=== PATIENT | female | born 1995 | race Caucasian/White ===

== ENCOUNTER 2020-07-28 12:31 | Emergency (ER) | payer OTHER ==
[2020-07-28 12:51] VITALS: BP 135/89; PULSE 73; TEMP 98.8; BMI 17.4
[2020-07-28] MEDS ORDERED: SODIUM CHLORIDE 0.9% 1000 ML INFUS.BAG IV ONE (13:05)
[2020-07-28] MEDS ORDERED: ONDANSETRON 4 MG/2 ML VIAL IVPUSH ONE (13:05)
[2020-07-28] MEDS ORDERED: ONDANSETRON 4 MG/2 ML VIAL ONE (13:06)
[2020-07-28 13:32] LABS: BASO % 1.1 % (0-2.0); HEMATOCRIT 41.7 % (32.4-45.2); HEMOGLOBIN 13.8 GM/dl (10.7-15.3); LYMPH % 22.7 % (8-40); MCH 29.6 pg (25.7-33.7); MEAN CELL VOLUME 89.5 fl (80-96); MEAN PLT VOLUME 9.1 fl (7.5-11.1); MONO % 7.7 % (3.8-10.2); NEUT % 68.5 % (42.8-82.8); PLATELET COUNT 260 K/MM3 (134-434); RBC 4.66 M/mm3 (3.60-5.2); RDW 12.1 % (11.6-15.6); WHITE BLOOD COUNT 5.9 K/mm3 (4.0-10.8)
[2020-07-28 13:40] LABS: ALBUMIN 4.5 g/dl (3.4-5.0); BILIRUBIN,TOTAL 0.8 mg/dl (0.2-1); CALCIUM 9.4 mg/dl (8.5-10); CREATININE 0.5 mg/dl (0.55-1.3); POTASSIUM 4.1 mmol/L (3.5-5.1); TOT PROT 7.3 g/dl (6.4-8.2)
== END 2020-07-28 14:10 | disposition home or self-care (01) ==
LOC: FER 12:31
PROC: 3E033GC Introduction of Other Therapeutic Substance into Peripheral Vein, Percutaneous Approach (ICD-10-PCS; principal; 2020-07-28)
DX: O21.0 Mild hyperemesis gravidarum (principal); Z3A.01 Less than 8 weeks gestation of pregnancy
CPT/HCPCS: 36415; 80053; 81003; 84702; 85025; 87086; 99284-25

== ENCOUNTER 2020-08-23 12:45 | Emergency (ER) | payer OTHER ==
[2020-08-23 13:02] VITALS: BP 120/84; PULSE 77; TEMP 97.9; BMI 16.7
== END 2020-08-23 15:32 | disposition home or self-care (01) ==
LOC: FER 12:45
DX: O26.899 Other specified pregnancy related conditions, unspecified trimester (principal); R10.9 Unspecified abdominal pain; Z04.1 Encounter for examination and observation following transport accident
CPT/HCPCS: 76801-TC; 99284-25

== ENCOUNTER 2021-03-18 15:46 | Inpatient (IN) | payer OTHER ==
[2021-03-18 16:39] VITALS: BMI 22.1
[2021-03-18] MEDS ORDERED: DINOPROSTONE 10 MG VAGINAL SUPPOSITORY VG ONE (17:03)
[2021-03-18] MEDS ORDERED: ZOLPIDEM TARTRATE 5 MG TABLET PO PRN (17:35)
[2021-03-18] MEDS: ELECTROLYTE-148 SOLN 1,000 ML IV SCH (21:30)
[2021-03-19] MEDS ORDERED: AMPICILLIN SODIUM 2 GM VIAL ONE (03:25)
[2021-03-19] MEDS ORDERED: AMPICILLIN - 2 GM in SODIUM CHLORIDE 100 ML IVPB ONE (03:30)
[2021-03-19] MEDS ORDERED: OXYTOCIN 30 UNITS in 0.9% NS 30 UNIT/500 ML INFUS.BAG IVPB SCH (08:15)
[2021-03-19] MEDS ORDERED: OXYTOCIN 30 UNITS in 0.9% NS 30 UNIT/500 ML INFUS.BAG IVPB ONE (11:02)
[2021-03-19] MEDS ORDERED: AMPICILLIN SODIUM 1 GM VIAL ONE ×4 (11:02→23:36)
[2021-03-19] MEDS ORDERED: DEXTROSE 5%-WATER - 50 ML IVPB ONE (11:03)
[2021-03-19] MEDS: AMPICILLIN - 1 GM in SODIUM CHLORIDE 100 ML IVPB SCH ×5 (11:34→23:30)
[2021-03-19] MEDS ORDERED: BUPIVACAINE HCL/PF 0.25% (2.5MG/ML) 10 ML VIAL ONE (17:29)
[2021-03-19] MEDS ORDERED: FENTANYL/BUPIVACAINE/NS/PF - PCEA - 50 ML DISP.SYRIN EP ONE (17:33)
[2021-03-19] MEDS: ELECTROLYTE-148 SOLN 1,000 ML IV SCH (19:00)
[2021-03-20] MEDS ORDERED: NALOXONE HCL 0.4 MG/ML VIAL IVPUSH PRN (00:24)
[2021-03-20] MEDS ORDERED: FENTANYL/BUPIVACAINE/NS/PF - PCEA - 50 ML DISP.SYRIN EP SCH (00:30)
[2021-03-20] MEDS ORDERED: FENTANYL/BUPIVACAINE/NS/PF - PCEA - 50 ML DISP.SYRIN EP ONE (00:49)
[2021-03-20] MEDS ORDERED: OXYTOCIN 20 UNITS in 0.9% NS 20 UNIT/1,000 ML INFUS.BAG IV ONE (02:56)
[2021-03-20] MEDS ORDERED: AMPICILLIN SODIUM 1 GM VIAL ONE (03:29)
[2021-03-20] MEDS: AMPICILLIN - 1 GM in SODIUM CHLORIDE 100 ML IVPB SCH (03:30)
[2021-03-20] MEDS: OXYTOCIN 20 UNITS in 0.9% NS 20 UNIT/1,000 ML INFUS.BAG IV SCH (06:10)
[2021-03-20] MEDS ORDERED: BENZOCAINE 20% 57 GM BOTTLE TP PRN (06:56)
[2021-03-20] MEDS ORDERED: BISACODYL 10 MG SUPP.RECT RC PRN (06:56)
[2021-03-20] MEDS ORDERED: METHYLERGONOVINE MALEATE 0.2 MG/1 ML AMP IM PRN (06:56)
[2021-03-20] MEDS ORDERED: WITCH HAZEL 50% (TUCKS) 40 PAD/JAR PAD TP PRN (06:56)
[2021-03-20] MEDS ORDERED: BENZOCAINE 28 GM HEMORRHOIDAL OINTMENT TP PRN (06:56)
[2021-03-20] MEDS ORDERED: ACETAMINOPHEN 325 MG TABLET (FP) PO PRN (06:56)
[2021-03-20] MEDS: IBUPROFEN 600 MG TABLET (FP) PO PRN (10:56)
[2021-03-21] MEDS: IBUPROFEN 600 MG TABLET (FP) PO PRN (05:00)
[2021-03-21 09:38] VITALS: BP 127/79; PULSE 76; TEMP 96.7
[2021-03-21] MEDS: OXYTOCIN 20 UNITS in 0.9% NS 20 UNIT/1,000 ML INFUS.BAG IV SCH (09:49)
[2021-03-21 10:49] LABS: BASO % 0.7 % (0-2.0); EOS % 2.1 % (0-4.5); HEMATOCRIT 32.3 % (32.4-45.2); HEMOGLOBIN 11.2 GM/dL (10.7-15.3); LYMPH % 14.2 % (8-40); MCH 30.7 pg (25.7-33.7); MCHC 34.6 g/dl (32.0-36.0); MEAN CELL VOLUME 88.8 fl (80-96); MEAN PLT VOLUME 9.1 fl (7.5-11.1); MONO % 4.8 % (3.8-10.2); NEUT % 78.2 % (42.8-82.8); PLATELET COUNT 194 10^3/uL (134-434); RBC 3.64 M/mm3 (3.60-5.2); RDW 13.9 % (11.6-15.6); WHITE BLOOD COUNT 9.2 K/mm3 (4.0-10.0)
[2021-03-21] MEDS ORDERED: SENNOSIDES/DOCUSATE COMBO (SENNA PLUS) TABLET (UD) PO PRN (22:00)
== END 2021-03-21 12:56 | disposition home or self-care (01) | DRG 768 ==
LOC: JLDR 15:46 → J3W 03-20 09:25
PROVIDERS: ADMIT Specialist; ATTEND Specialist
PROC: 3E0P7VZ Introduction of Hormone into Female Reproductive, Via Natural or Artificial Opening (ICD-10-PCS; 2021-03-18)
PROC: 10907ZC Drainage of Amniotic Fluid, Therapeutic from Products of Conception, Via Natural or Artificial Opening (ICD-10-PCS; 2021-03-19)
PROC: 10E0XZZ Delivery of Products of Conception, External Approach (ICD-10-PCS; principal; 2021-03-20)
PROC: 0DQP0ZZ Repair Rectum, Open Approach (ICD-10-PCS; 2021-03-20)
DX: O63.1 Prolonged second stage (of labor) (principal); Z37.0 Single live birth; O70.3 Fourth degree perineal laceration during delivery; O99.824 Streptococcus B carrier state complicating childbirth; Z3A.39 39 weeks gestation of pregnancy
CPT/HCPCS: 36415; 59409; 85025

== ENCOUNTER 2021-06-21 00:38 | Emergency (ER) | payer OTHER ==
[2021-06-21 00:47] VITALS: BP 116/79; PULSE 63; TEMP 97.9; BMI 16.2
== END 2021-06-21 01:12 | disposition home or self-care (01) ==
LOC: FER 00:38
DX: J30.89 Other allergic rhinitis (principal)
CPT/HCPCS: 99281-25

== ENCOUNTER 2022-01-22 21:16 | Emergency (ER) | payer OTHER ==
[2022-01-22 21:29] VITALS: BP 114/54; PULSE 81; TEMP 98.3; BMI 19.1
== END 2022-01-22 23:34 | disposition home or self-care (01) ==
LOC: FER 21:16
DX: O26.892 Other specified pregnancy related conditions, second trimester (principal); R10.9 Unspecified abdominal pain; Z3A.20 20 weeks gestation of pregnancy
CPT/HCPCS: 76815; 99283-25

== ENCOUNTER 2022-02-10 10:12 | Emergency (ER) | payer OTHER ==
[2022-02-10 10:39] VITALS: BP 125/79; PULSE 93; TEMP 98.7; BMI 21.2
== END 2022-02-10 11:16 | disposition home or self-care (01) ==
LOC: FER 10:12
DX: U07.1 COVID-19 (principal)
CPT/HCPCS: 0241U-QW; 87651; 99283-25

== ENCOUNTER 2022-02-10 16:00 | Emergency (ER) | payer OTHER ==
[2022-02-10] MEDS ORDERED: BEBTELOVIMAB (EUA) 175 MG/2 ML VIAL IVPUSH ONE (16:15)
[2022-02-10 16:24] VITALS: TEMP 97.9; BMI 21.2
[2022-02-10 18:40] VITALS: BP 100/67; PULSE 86
== END 2022-02-10 19:02 | disposition home or self-care (01) ==
LOC: JER 16:00
DX: O98.52 Other viral diseases complicating childbirth (principal); U07.1 COVID-19; Z3A.19 19 weeks gestation of pregnancy
CPT/HCPCS: 99284-25; Q0222

== ENCOUNTER 2022-06-10 06:15 | Inpatient (IN) | payer OTHER ==
[2022-06-10] MEDS ORDERED: CITRIC ACID/SODIUM CITRATE 30 ML UNIT-DOSE CUP PO ONE (06:30)
[2022-06-10] MEDS ORDERED: ELECTROLYTE-148 SOLN 1,000 ML IV ONE (06:30)
[2022-06-10] MEDS ORDERED: ELECTROLYTE-148 SOLN 1,000 ML IV SCH (07:00)
[2022-06-10 07:30] VITALS: BMI 22.9
[2022-06-10] MEDS ORDERED: PHENYLEPHRINE HCL 10 MG/1 ML SINGLE DOSE VIAL ONE (08:06)
[2022-06-10] MEDS ORDERED: morphine SULFATE/PF 1 MG/2 ML (2cc Syringe - QUVA) ONE (08:07)
[2022-06-10] MEDS ORDERED: ONDANSETRON 4 MG/2 ML VIAL IVPUSH PRN (08:20)
[2022-06-10] MEDS ORDERED: ACETAMINOPHEN 325 MG TABLET (FP) PO PRN ×2 (08:20→10:43)
[2022-06-10] MEDS ORDERED: ELECTROLYTE-148 SOLN 500 ML IV ONE (08:23)
[2022-06-10] MEDS ORDERED: ePHEDrine SULFATE 50 MG/1 ML AMPULE ONE (09:24)
[2022-06-10] MEDS ORDERED: CLINDAMYCIN PHOSPHATE 900 MG/6 ML VIAL IVPB ONE (09:37)
[2022-06-10] MEDS ORDERED: OXYTOCIN 10 UNIT/ML 10ML MDV ONE (09:43)
[2022-06-10] MEDS ORDERED: ONDANSETRON 4 MG/2 ML VIAL IVPB PRN (10:43)
[2022-06-10] MEDS ORDERED: ACETAMINOPHEN 1000 MG/100 ML BAG IVPB PRN (10:43)
[2022-06-10] MEDS ORDERED: SENNOSIDES/DOCUSATE COMBO (SENNA PLUS) TABLET (UD) PO PRN (10:43)
[2022-06-10] MEDS ORDERED: IBUPROFEN 800 MG/8 ML IJ IVPB PRN (10:43)
[2022-06-10] MEDS ORDERED: oxyCODONE HCL 5 MG TABLET PO PRN (10:43)
[2022-06-10] MEDS ORDERED: IBUPROFEN 600 MG TABLET (FP) PO PRN (10:43)
[2022-06-10] MEDS ORDERED: OXYTOCIN 20 UNITS in 0.9% NS 20 UNIT/1,000 ML INFUS.BAG IV SCH (10:45)
[2022-06-10] MEDS: CLINDAMYCIN 600MG PREMIX IVPB 600 MG/50 ML BAG IVPB SCH (19:51)
[2022-06-11] MEDS: CLINDAMYCIN 600MG PREMIX IVPB 600 MG/50 ML BAG IVPB SCH (01:00)
[2022-06-11] MEDS: SIMETHICONE 80 MG TAB.CHEW (FP) PO PRN ×2 (03:33→21:28)
[2022-06-11] MEDS: IBUPROFEN 600 MG TABLET (FP) PO PRN ×4 (03:34→23:17)
[2022-06-11 09:11] LABS: BASO % 0.7 % (0-2.0); EOS % 1.3 % (0-4.5); HEMATOCRIT 33.1 % (32.4-45.2); HEMOGLOBIN 11.7 GM/dL (10.7-15.3); LYMPH % 9.9 % (8-40); MCHC 35.2 g/dl (32.0-36.0); MEAN CELL VOLUME 85.3 fl (80-96); MEAN PLT VOLUME 8.3 fl (7.5-11.1); MONO % 5.2 % (3.8-10.2); NEUT % 82.9 % (42.8-82.8); PLATELET COUNT 201 10^3/uL (134-434); RBC 3.89 M/mm3 (3.60-5.2); RDW 14.5 % (11.6-15.6); WHITE BLOOD COUNT 9.7 K/mm3 (4.0-10.0)
[2022-06-11] MEDS ORDERED: BISACODYL 10 MG SUPP.RECT RC PRN (10:43)
[2022-06-11] MEDS ORDERED: oxyCODONE HCL 5 MG TABLET PO PRN (12:36)
[2022-06-11] MEDS: ACETAMINOPHEN 500 MG TABLET (FP) PO PRN (15:19)
[2022-06-12] MEDS: ACETAMINOPHEN 500 MG TABLET (FP) PO PRN (06:33)
[2022-06-12] MEDS: SIMETHICONE 80 MG TAB.CHEW (FP) PO PRN (06:33)
[2022-06-12] MEDS: IBUPROFEN 600 MG TABLET (FP) PO PRN (08:49)
[2022-06-12 09:07] VITALS: BP 120/79; PULSE 83; RESP 18; TEMP 97.7
== END 2022-06-12 11:37 | disposition home or self-care (01) | DRG 788 ==
LOC: JLDR 06:15 → J3W 15:15
PROVIDERS: ADMIT Specialist; ATTEND Specialist
PROC: 10D00Z1 Extraction of Products of Conception, Low, Open Approach (ICD-10-PCS; principal; 2022-06-10)
DX: O30.043 Twin pregnancy, dichorionic/diamniotic, third trimester (principal); O32.1XX2 Maternal care for breech presentation, fetus 2; Z3A.37 37 weeks gestation of pregnancy; Z37.2 Twins, both liveborn
CPT/HCPCS: 36415; 85025; 88307-TC

== ENCOUNTER 2022-08-02 20:15 | Emergency (ER) | payer OTHER ==
[2022-08-02 20:32] VITALS: BP 129/87; PULSE 104; RESP 16; TEMP 97.8; BMI 17.7
[2022-08-02 21:16] LABS: HEMATOCRIT 39.7 % (32.4-45.2); HEMOGLOBIN 13.8 G/dL (10.7-15.3); MCH 29.2 pg (25.7-33.7); MCHC 34.7 g/dl (32.0-36.0); MEAN CELL VOLUME 84.2 fl (80-96); PLATELET COUNT 268.8 10^3/uL (134-434); RBC 4.71 10^6/uL (3.60-5.2); RDW 15.1 % (11.6-15.6); WHITE BLOOD COUNT 5.8 10^3/uL (4.0-10.8)
[2022-08-02 21:23] LABS: ALBUMIN 4.4 g/dl (3.4-5.0); BILIRUBIN,TOTAL 0.9 mg/dl (0.2-1); CREATININE 0.7 mg/dl (0.55-1.3); MAGNESIUM 1.9 mg/dL (1.8-2.4)
== END 2022-08-02 21:01 | disposition home or self-care (01) ==
LOC: FER 20:15
DX: J09.X2 Influenza due to identified novel influenza A virus with other respiratory manifestations (principal)
CPT/HCPCS: 0241U-QW; 36415; 80053; 83735; 85027; 99283-25